=== PATIENT | female | born 1950 | race Caucasian/White ===

== ENCOUNTER 2018-01-02 05:11 | Emergency (ER) | payer MEDICARE, OTHER ==
[2018-01-02 05:53] LABS: #Eosinphils 0.3 thou/uL (0.0-0.7); #Lymphocytes 0.9 thou/uL (1.20-3.40); #Neutrophils 14.1 thou/uL (1.40-6.50); %Basophils 0.2 % (0.0-1.0); %Eosinophils 1.6 % (0.0-10.0); %Lymphocytes 5.6 % (21.0-51.0); %Monocytes 6.1 % (0.0-10.0); %Neutrophils 86.5 % (42.0-75.0); Hemoglobin 13.4 g/dL (12.0-16.0); Mean Corpuscular HGB CONC 30.8 g/dL (32.0-36.0); Mean Corpuscular Hemoglobin 26.4 pg (27.0-31.0); Mean Corpuscular Volume 85.6 fL (78.0-98.0); Mean Platelet Volume 7.3 fL (7.4-10.4); Platelet Count 329 thou/uL (130-400); RBC Distribution Width 13.7 % (11.5-14.5); Red Blood Cell (RBC) Count 5.06 mill/uL (4.20-5.40); White Blood Cell (WBC) Count 16.3 thou/uL (4.8-10.8)
[2018-01-02] MEDS ORDERED: Ondansetron ODT 4 MG TAB ONE (06:01)
[2018-01-02 06:02] LABS: Bilirubin Negative (Negative); Blood, Urine Negative (Negative); Clarity CLOUDY (Clear); Glucose, Urine (Dipstick) Negative (Negative); Leukocyte Negative (Negative); Nitrite Negative (Negative); Protein, Urine (Dipstick) Negative (Neg-Trace); Specific Gravity, Urine 1.018 (1.002-1.036); Urobilinogen 0.2 mg/dL (0.2-1.0); pH, Urine 5.5 (5.0-9.0)
[2018-01-02 06:14] LABS: ALT (SGPT) 16 U/L (8-55); AST (SGOT) 18 U/L (5-34); Albumin 4.2 g/dL (3.4-4.8); Alkaline Phosphatase 109 U/L (40-150); Anion Gap 17 mmol/L (10-20); BUN (Urea Nitrogen) 32 mg/dL (9.8-20.1); Bilirubin, Total 0.6 mg/dL (0.2-1.2); Calc. Creatinine Clearance 0 mL/min (70-130); Calcium 9.3 mg/dL (7.8-10.44); Carbon Dioxide 21 mmol/L (23-31); Chloride 100 mmol/L (98-107); Estimated GFR-MDRD 39; Globulin 3.2 g/dL (2.4-3.5); Glucose 129 mg/dL (80-115); Lipase 26 U/L (8-78); Potassium 4.5 mmol/L (3.5-5.1); Protein, Total 7.4 g/dL (6.0-8.3); Sodium 133 mmol/L (136-145)
[2018-01-02] MEDS ORDERED: Ondansetron PF 4 MG/2 ML Vial ONE (06:37)
[2018-01-02 06:55] LABS: CKMB 2.3 ng/mL (0-6.6); Troponin I Less than 0.010 ng/mL (< 0.028)
--- NOTE | 2018-01-02 07:53 | CT ---
ABDOMEN AND PELVIC CT SCAN WITH IV CONTRAST: History: 67-year-old female with history of abdominal pain, nausea, vomiting. FINDINGS: The lung bases are clear. Status post cholecystectomy. Liver, pancreas, spleen, and adrenal glands ar e unremarkable. Kidneys show no hydronephrosis or renal calculus or acute obstruction. There is so me very subtle fat stranding in the central mesentery. Colonic diverticulosis without acute diverticu litis. Normal appearing appendix. No abscess, adenopathy, abnormal fluid collection or other signific ant acute process. IMPRESSION: Unremarkable abdomen and pelvis CT. No renal calculus or obstruction. Colonic diverticulosis witho ut diverticulitis. No CT evidence for acute appendicitis. Status post cholecystectomy and hysterectom y. POS: [facility]
== END 2018-01-02 09:07 | disposition home or self-care (01) ==
LOC: ERS 05:11
DX: K52.9 Noninfective gastroenteritis and colitis, unspecified (principal); E11.9 Type 2 diabetes mellitus without complications; I10 Essential (primary) hypertension; Z79.84 Long term (current) use of oral hypoglycemic drugs; Z79.899 Other long term (current) drug therapy
CPT/HCPCS: 36415; 74177; 80053; 81003; 82274; 82553; 83690; 84484; 85025; 93005; 96361; 96374; J2405; Q0162